=== PATIENT | female | born 1985 | race Two or more races ===

== ENCOUNTER 2017-12-19 20:26 | Emergency (ER) | payer OTHER ==
[~2017-12-19] VITALS: Ht 152.4 cm; Wt 45.4 kg
[~2017-12-19 20:26] MED LIST: DICLEGIS DR 101 EACH PO; NO TOMA MEDICAMENTOS; PROCARDIA90 MG/BLIS PO; PROFERRIN-FORTE1 TAB PO; TYLENOL W-CODEI1 TAB PO
== END 2017-12-19 23:16 | disposition home or self-care (01) ==
LOC: ER 20:26
DX: H60.8X1 Other otitis externa, right ear (principal)

== ENCOUNTER 2020-11-11 14:30 | Emergency (ER) | payer OTHER ==
[~2020-11-11] VITALS: Ht 152.4 cm; Wt 45.4 kg
== END 2020-11-11 17:38 | disposition home or self-care (01) ==
LOC: ER 14:30
DX: H61.21 Impacted cerumen, right ear (principal)

== ENCOUNTER 2022-07-01 12:09 | Emergency (ER) | payer OTHER ==
[~2022-07-01] VITALS: Ht 149.9 cm; Wt 45.4 kg
== END 2022-07-01 15:17 | disposition home or self-care (01) ==
LOC: ER 12:09
DX: J02.9 Acute pharyngitis, unspecified (principal); R05.9 Cough, unspecified; Z20.822 Contact with and (suspected) exposure to COVID-19

== ENCOUNTER 2023-03-31 12:51 | Emergency (ER) | payer OTHER ==
[~2023-03-31] VITALS: Ht 152.4 cm; Wt 45.4 kg
== END 2023-03-31 19:38 | disposition home or self-care (01) ==
LOC: ER 12:51
DX: R10.13 Epigastric pain (principal); R10.9 Unspecified abdominal pain

== ENCOUNTER 2023-12-25 08:42 | Emergency (ER) | payer OTHER ==
[~2023-12-25] VITALS: Ht 152.4 cm; Wt 44.5 kg
[2023-12-25] MEDS ORDERED: TETRACAINE HCL 20 DR/ML DROPS OP ONE (09:15)
[2023-12-25] MEDS ORDERED: GENTAMICIN SULFATE 3.5 GM TUBE OP ONE (09:15)
== END 2023-12-25 10:40 | disposition home or self-care (01) ==
LOC: ER 08:42
DX: S05.01XA Injury of conjunctiva and corneal abrasion without foreign body, right eye, initial encounter (principal); X58.XXXA Exposure to other specified factors, initial encounter; Y93.9 Activity, unspecified; Y92.89 Other specified places as the place of occurrence of the external cause; Y99.9 Unspecified external cause status

== ENCOUNTER 2025-01-05 17:47 | Emergency (ER) | payer OTHER ==
[~2025-01-05] VITALS: Ht 157.5 cm; Wt 45.4 kg
[2025-01-05] MEDS ORDERED: 0.9 % SODIUM CHLORIDE 1,000 ML IV ONE (20:15)
[2025-01-05 21:20] LABS: HEMOGLOBIN 12.9 g/dL (12.0-15.00); MEAN CELL VOLUME 83.9 fL (80.00-100.00); MEAN CORPUSCULAR HEMOGLOBIN 28.5 pg (27.00-32.0); MEAN CORPUSCULAR HGB CONC 33.9 g/dl (32.0-36.0); PLATELET COUNT 155 K/uL (150-450); RED BLOOD COUNT 4.53 M/uL (4.00-6.00); RED CELL DISTRIBUTION WIDTH 13.4 % (11.5-14.5)
[2025-01-05 21:44] LABS: ALBUMIN 3.7 gm/dL (3.4-5.0); BILIRUBIN TOTAL 0.16 mg/dL (0.3-1.2); CALCIUM 8.9 mg/dL (8.5-10.1); CREATININE SERUM 0.6 mg/dL (0.55-1.02); GFR 112.49; GLOBULINA 3.7 G/DL (2.4-3.5); POTASSIUM 3.77 mEq/L (3.5-5.1); TOTAL PROTEIN 7.4 gm/dL (6.4-8.2)
[2025-01-05] MEDS ORDERED: ZOFRAN8 MG PO (23:26)
== END 2025-01-05 23:45 | disposition home or self-care (01) ==
LOC: ER 17:49
PROVIDERS: Preventive Medicine Public Health & General Preventive Medicine
DX: K52.89 Other specified noninfective gastroenteritis and colitis (principal); Z20.822 Contact with and (suspected) exposure to COVID-19

== ENCOUNTER 2025-01-21 17:02 | Emergency (ER) | payer OTHER ==
[~2025-01-21] VITALS: Ht 149.9 cm; Wt 45.4 kg
[~2025-01-21 17:02] MED LIST changes: +ZOFRAN8 MG PO
[2025-01-21 20:20] LABS: HEMATOCRIT 38.8 % (36.0-45.00); MEAN CELL VOLUME 83.4 fL (80.00-100.00); MEAN CORPUSCULAR HEMOGLOBIN 27.9 pg (27.00-32.0); MEAN CORPUSCULAR HGB CONC 33.4 g/dl (32.0-36.0); PLATELET COUNT 189 K/uL (150-450); RED BLOOD COUNT 4.65 M/uL (4.00-6.00); RED CELL DISTRIBUTION WIDTH 13.4 % (11.5-14.5)
[2025-01-21 20:22] LABS: ALBUMIN 3.8 gm/dL (3.4-5.0); BILIRUBIN TOTAL 0.34 mg/dL (0.3-1.2); CREATININE SERUM 0.63 mg/dL (0.55-1.02); GFR 106.33; GLOBULINA 3.7 G/DL (2.4-3.5); TOTAL PROTEIN 7.5 gm/dL (6.4-8.2)
== END 2025-01-21 21:40 | disposition home or self-care (01) ==
LOC: ER 17:03
DX: B34.9 Viral infection, unspecified (principal); Z20.822 Contact with and (suspected) exposure to COVID-19